=== PATIENT | female | born 1955 | race Caucasian/White ===

== ENCOUNTER 2017-04-21 09:43 | Emergency (ER) | payer BC ==
[2017-04-21] MEDS ORDERED: Aspirin 81 MG Tab.Chew PO ONE (10:05)
[2017-04-21] MEDS: Nitroglycerin 2% Oint 1 GM UD Packet TOP ONE (10:10)
[2017-04-21] MEDS: Sodium Chloride 0.9% 1,000 ML IV SCH ×2 (10:10→10:20)
--- NOTE | 2017-04-21 10:15 | EDM.PDOC ---
ED HPI GENERAL MEDICAL PROBLEM - General Stated Complaint: CHEST PAIN Time Seen by Provider: 04/21/17 09:43 Source of Information: Reports: Patient, Family History Limitations: Reports: No Limitations - History of Present Illness INITIAL COMMENTS - FREE TEXT/NARRATIVE: 61 y.o.w.f. with CAD risk factors, H/O colon CA, came to the ed due to C/P when taking a deep breath. No N/V/D or dizziness, no diaphoresis or any other acute medical issues at this time. BP was 136/67 pulse was 93 Onset: Today Onset Date: 04/03/17 Onset Time: 07:00 Duration: Intermittent Location: Reports: Chest Quality: Reports: Ache Severity: Mild Improves with: Reports: Immobilization, Rest Worsens with: Reports: Breathing, Movement Context: Reports: Other (unknown) Associated Symptoms: Reports: No Other Symptoms chest pain Pain Score (Numeric/FACES): 6 - Related Data Allergies Allergy/AdvReac Type Severity Reaction Status Date / Time erythromycin base Allergy Rash Verified 09/23/16 14:17 [Erythromycin Base] Home Meds: Home Meds Levothyroxine 150 mcg PO ACBRK 05/12/14 [History] Lisinopril [Zestril] 5 mg PO DAILY 05/12/14 [History] SitaGLIPtin [Januvia] 50 mg PO DAILY 05/12/14 [History] metFORMIN HCl [Metformin HCl ER] 1,000 mg PO BIDM 05/12/14 [History] Insuln Asp Prot/Insulin Aspart [NovoLOG Mix 70-30] 20 units SQ PCDINNER [History] Cyanocobalamin (Vitamin B-12) [B-12] 1,000 mcg PO DAILY 09/23/16 [History] Liraglutide [Victoza] 1.2 mg SUBCUT BEDTIME 09/23/16 [History] Liraglutide [Victoza] 1.8 mg SQ BEDTIME 09/23/16 [History] atorvaSTATin [Lipitor] 40 mg PO DAILY 09/23/16 [History] Magnesium Oxide [Magnesium] 500 mg PO DAILY 09/26/16 [History] Ascorbic Acid [Vitamin C] 1,000 mg PO DAILY 04/21/17 [History] Past Medical History HEENT History: Reports: Impaired Vision Cardiovascular History: Reports: High Cholesterol, Hypertension Respiratory History: Reports: None Gastrointestinal History: Reports: Colon Polyp, Other (See Below) Other Gastrointestinal History: COLON RESECTION FOR CA 2013 Genitourinary History: Reports: Diabetic Nephropathy [employer] SPECIALIST History: Reports: Musculoskeletal History: Reports: Back Pain, Chronic Neurological History: Reports: None Psychiatric History: Reports: None Endocrine/Metabolic History: Reports: Diabetes, Type I, Hypothyroidism Hematologic History: Reports: None, B12 Deficiency Oncologic (Cancer) History: Reports: Colon, Other (See Below) Other Oncologic History: LYMPH NODES Dermatologic History: Reports: None - Infectious Disease History Infectious Disease History: Reports: Chicken Pox, Measles, Mumps - Past Surgical History GI Surgical History: Reports: Colon, Colonoscopy, Hernia, Abdominal, Other (See Below) Female Surgical History: Reports: Breast Reduction, Section, Salpingo-Oophorectomy Social & Family History - Family History Family Medical History: Noncontributory - Tobacco Use Smoking Status *Q: Former Smoker Years of Tobacco use: 10 Used Tobacco, but Quit: No Month Tobacco Last Used: 04/2014 Second Hand Smoke Exposure: No - Alcohol Use Days Per Week of Alcohol Use: 0 - Recreational Drug Use Recreational Drug Use: No ED ROS GENERAL - Review of Systems Review Of Systems: See Below Constitutional: Reports: No Symptoms HEENT: Reports: No Symptoms Respiratory: Reports: No Symptoms Cardiovascular: Reports: Chest Pain Endocrine: Reports: No Symptoms GI/Abdominal: Reports: No Symptoms : Reports: No Symptoms Musculoskeletal: Reports: No Symptoms Skin: Reports: No Symptoms Neurological: Reports: No Symptoms Psychiatric: Reports: No Symptoms Hematologic/Lymphatic: Reports: No Symptoms Immunologic: Reports: No Symptoms ED EXAM, GENERAL - Physical Exam Exam: See Below Exam Limited By: No Limitations General Appearance: Alert, WD/WN, Mild Distress Eye Exam: Bilateral Eye: Normal Inspection Ears: Normal External Exam Ear Exam: Bilateral Ear: Auricle Normal Nose: Normal Inspection, Normal Mucosa Throat/Mouth: Normal Inspection, Normal Lips, Normal Voice, No Airway Compromise Head: Atraumatic, Normocephalic Neck: Normal Inspection, Supple Respiratory/Chest: No Respiratory Distress, Lungs Clear, Normal Breath Sounds Cardiovascular: Normal Peripheral Pulses, Regular Rate, Rhythm, No Edema Peripheral Pulses: 1+: Femoral (L), Femoral (R) GI/Abdominal: Normal Bowel Sounds, Soft, Non-Tender (Female) Exam: Deferred Rectal (Female) Exam: Deferred Back Exam: Normal Inspection, Full Range of Motion Extremities: Normal Inspection, Normal Range of Motion, Non-Tender Neurological: Alert, Oriented, CN II-XII Intact, Normal Cognition, Normal Gait Psychiatric: Normal Affect, Normal Mood Skin Exam: Warm, Dry, Intact, Normal Color Lymphatic: No Adenopathy EKG INTERPRETATION EKG Date: 04/21/17 Time: 09:50 Rhythm: NSR Rate (Beats/Min): 87 [place]: Normal P-Wave: Present QRS: Normal ST-T: Normal QT: Normal Comparison: NA - No Prior EKG Course - Vital Signs Text/Narrative:: 61 y.o.w.f. with CAD risk factors, H/O colon CA, came to the ed due to C/P when taking a deep breath. No N/V/D or dizziness, no diaphoresis or any other acute medical issues at this time. BP was 136/67 pulse was 93 PE: C/P tendernes Labs: D Dimer, cbc wnl, Troponin neg, Na was 133 Imaging: CXR NAD ECG: NSR Impression: Atypical chest pain Tx: Toradol (helped the most), ASA, NTG paste initially (did not help) Reexam: 100% improved Plan: D/C with instructions. Last Recorded V/S: Last Vital Signs Temp 36.2 C 04/21/17 09:45 Pulse 94 04/21/17 09:45 Resp 17 04/21/17 09:45 BP 134/63 04/21/17 09:45 Pulse Ox 94 L 04/21/17 09:45 - Orders/Labs/Meds Orders: Active Orders 24 hr Category Date Time Status Sodium Chloride 0.9% [Normal Saline] 1,000 ml Med 04/21/17 10:15 Active IV ASDIRECTED EKG 12 Lead [EK] Routine Ther 04/21/17 09:58 Ordered Medication Orders Sodium Chloride (Normal Saline) 1,000 mls @ 125 mls/hr IV ASDIRECTED RORO Last Admin: 04/21/17 10:20 Dose: 125 mls/hr Admin: 04/21/17 10:10 Dose: 125 mls/hr Labs: Laboratory Tests 04/21/17 04/21/17 04/21/17 Range/Units 10:05 10:06 10:06 WBC 6.0 (4.5-12.0) X10-3/uL RBC 4.71 (3.23-5.20) x10(6)uL Hgb 13.5 (11.5-15.5) g/dL Hct 40.3 (30.0-51.3) % MCV 85.5 (80-96) fL MCH 28.7 (27.7-33.6) pg MCHC 33.6 (32.2-35.4) g/dL RDW 13.6 (11.5-15.5) % Plt Count 213 (125-369) X10(3)uL MPV 8.2 (7.4-10.4) fL Neut % (Auto) 61.0 (46-82) % Lymph % (Auto) 26.1 (13-37) % [facility] % (Auto) 9.6 (4-12) % Eos % (Auto) 2 (1.0-5.0) % Baso % (Auto) 1 (0-2) % Neut # (Auto) 3.6 (1.6-8.3) # Lymph # (Auto) 1.6 (0.6-5.0) # [facility] # (Auto) 0.6 (0.0-1.3) # Eos # (Auto) 0.1 (0.0-0.8) # Baso # (Auto) 0.1 (0.0-0.2) # D-Dimer, Quantitative < 100 L (100-400) ng/mL Sodium 133 L (135-145) mmol/L Potassium 4.6 (3.5-5.3) mmol/L Chloride 98 L D (100-110) mmol/L Carbon Dioxide 21 L (23-29) mmol/L BUN 21 H (5-20) mg/dL Creatinine 1.0 (0.6-1.3) mg/dL Est Cr Clr Drug Dosing TNP Estimated GFR (MDRD) 57 L (>60) BUN/Creatinine Ratio 21.0 H (9-20) Glucose 321 H D (80-116) mg/dL Calcium 9.0 (8.6-10.2) mg/dL Total Bilirubin 1.6 H (0.1-1.3) mg/dL AST 24 (5-27) IU/L ALT 23 (14-26) IU/L Alkaline Phosphatase 54 L (56-112) IU/L Troponin I (0.02-0.06) NG/ML Total Protein 7.0 (6.0-8.0) g/dL Albumin 4.1 (3.5-5.2) g/dL Globulin 2.9 g/dL Albumin/Globulin Ratio 1.4 04/21/ Range/Units 10:06 WBC (4.5-12.0) X10-3/uL RBC (3.23-5.20) x10(6)uL Hgb (11.5-15.5) g/dL Hct (30.0-51.3) % MCV (80-96) fL MCH (27.7-33.6) pg MCHC (32.2-35.4) g/dL RDW (11.5-15.5) % Plt Count (125-369) X10(3)uL MPV (7.4-10.4) fL Neut % (Auto) (46-82) % Lymph % (Auto) (13-37) % [facility] % (Auto) (4-12) % Eos % (Auto) (1.0-5.0) % Baso % (Auto) (0-2) % Neut # (Auto) (1.6-8.3) # Lymph # (Auto) (0.6-5.0) # [facility] # (Auto) (0.0-1.3) # Eos # (Auto) (0.0-0.8) # Baso # (Auto) (0.0-0.2) # D-Dimer, Quantitative (100-400) ng/mL Sodium (135-145) mmol/L Potassium (3.5-5.3) mmol/L Chloride (100-110) mmol/L Carbon Dioxide (23-29) mmol/L BUN (5-20) mg/dL Creatinine (0.6-1.3) mg/dL Est Cr Clr Drug Dosing Estimated GFR (MDRD) (>60) BUN/Creatinine Ratio (9-20) Glucose (80-116) mg/dL Calcium (8.6-10.2) mg/dL Total Bilirubin (0.1-1.3) mg/dL AST (5-27) IU/L ALT (14-26) IU/L Alkaline Phosphatase (56-112) IU/L Troponin I < 0.01 L (0.02-0.06) NG/ML Total Protein (6.0-8.0) g/dL Albumin (3.5-5.2) g/dL Globulin g/dL Albumin/Globulin Ratio Meds: Medications Generic Name Dose Route Start Last Admin Trade Name Raudel PRN Reason Stop Dose Admin Sodium Chloride 1,000 mls @ 125 mls/hr 04/21/17 10:15 04/21/17 10:20 Normal Saline IV 125 mls/hr ASDIRECTED RORO Administration Discontinued Medications Generic Name Dose Route Start Last Admin Trade Name Raudel PRN Reason Stop Dose Admin Aspirin 324 mg 04/21/17 10:05 04/21/17 09:45 Aspirin PO 04/21/17 10:06 324 mg ONETIME ONE Administration Ketorolac Tromethamine 30 mg 04/21/17 11:04 04/21/17 11:13 Toradol IVPUSH 04/21/17 11:05 30 mg ONETIME ONE Administration Nitroglycerin 1 gm 04/21/17 10:05 04/21/17 10:10 Nitro-Bid 2% TOP 04/21/17 10:06 1 gm ONETIME ONE Administration Departure - Departure Time of Disposition: 11:32 Disposition: Home, Self-Care 01 Condition: Good Clinical Impression: Atypical chest pain, Hyponatremia Diabetes Qualifiers: Diabetes mellitus type: type 2 Instructions: Nonspecific Chest Pain Referrals: Nestor Fallon MD [Primary Care Provider] - Additional Instructions: Please increase water intake, motrin for pain, please f/u. come back if your symptoms get worse acutely. - My Orders Last 24 Hours: My Active Orders 04/21/17 09:58 EKG 12 Lead [EK] Routine 04/21/17 10:15 Sodium Chloride 0.9% [Normal Saline] 1,000 ml IV ASDIRECTED - Assessment/Plan Last 24 Hours: My Active Orders 04/21/17 09:58 EKG 12 Lead [EK] Routine 04/21/17 10:15 Sodium Chloride 0.9% [Normal Saline] 1,000 ml IV ASDIRECTED
[2017-04-21] MEDS ORDERED: Ketorolac 30 MG/ML SDV IVPUSH ONE (11:04)
--- NOTE | 2017-04-21 11:55 | CR ---
INDICATION: Chest pain. CHEST: An AP upright view of the chest was obtained 04/21/2017 and compared with 06/10/2014, again revealing evidence of exogenous obesity. The heart did not appear enlarged. Some minimal calcification is suggested in the arch of the aorta. Overlying EKG leads are noted. An active infiltrate or effusion was not identified. IMPRESSION: No acute process - findings as noted above. MTDD
[2017-04-21 16:23] VITALS: BP 120/69
== END 2017-04-21 11:45 | disposition home or self-care (01) ==
LOC: FB.ED 09:43
DX: R07.89 Other chest pain (principal); E87.1 Hypo-osmolality and hyponatremia; E78.00 Pure hypercholesterolemia, unspecified; E11.21 Type 2 diabetes mellitus with diabetic nephropathy; I10 Essential (primary) hypertension; E03.9 Hypothyroidism, unspecified; Z87.891 Personal history of nicotine dependence; Z79.84 Long term (current) use of oral hypoglycemic drugs; Z79.899 Other long term (current) drug therapy; Z88.1 Allergy status to other antibiotic agents; Z79.4 Long term (current) use of insulin
CPT/HCPCS: 36415; 71010; 80053; 84484; 85025; 85379; 93005; 96361; 96374; 99285; A9270; J1885; J7040

== ENCOUNTER 2018-09-09 09:48 | Emergency (ER) | payer BC ==
[2018-09-09] MEDS ORDERED: Aspirin 81 MG Tab.Chew PO ONE (09:59)
[2018-09-09 10:14] VITALS: BP 153/81
--- NOTE | 2018-09-09 10:14 | EDM.PDOC ---
ED HPI GENERAL MEDICAL PROBLEM - General Chief Complaint: Chest Pain Stated Complaint: CHEST FEELS DIFFERENT Time Seen by Provider: 09/09/18 09:48 Source of Information: Reports: Patient (by PC) History Limitations: Reports: No Limitations - History of Present Illness INITIAL COMMENTS - FREE TEXT/NARRATIVE: 63 y.o.w.f with H/O IDDM, came to the ed due to chest pain with chest movement. Pain moves from her right shoulder to left shoulder to ant chest, then back etc. No pain at rest. No N/V/D no Dizziness, no diaphoresis, no other acute medical issues BP 153/81 RR 16 Pulse ox 97% on RA Temp 36.1 Pulse 81 Onset Date: 09/09/18 Onset Time: 06:00 Duration: Hour(s):, Intermittent (with movement) Location: Reports: Chest Quality: Reports: Ache Severity: Moderate Improves with: Reports: Rest Worsens with: Reports: Movement Context: Reports: Other Associated Symptoms: Reports: No Other Symptoms left chest Pain Score (Numeric/FACES): 8 - Related Data Allergies Allergy/AdvReac Type Severity Reaction Status Date / Time erythromycin base Allergy Rash Verified 09/09/18 09:59 [Erythromycin Base] Home Meds: Home Meds Levothyroxine 150 mcg PO ACBRK 05/12/14 [History] Lisinopril [Zestril] 5 mg PO DAILY 05/12/14 [History] SitaGLIPtin [Januvia] 50 mg PO DAILY 05/12/14 [History] metFORMIN HCl [Metformin ER Osmotic] 1,000 mg PO BIDM 05/12/14 [History] Insuln Asp Prot/Insulin Aspart [NovoLOG Mix 70-30] 20 units SQ TID 06/09/14 [ History] Cyanocobalamin (Vitamin B-12) [B-12] 1,000 mcg PO DAILY 09/23/16 [History] atorvaSTATin [Lipitor] 40 mg PO DAILY 09/23/16 [History] Magnesium Oxide [Magnesium] 500 mg PO DAILY 09/26/16 [History] Ascorbic Acid [Vitamin C] 1,000 mg PO DAILY 04/21/17 [History] Dulaglutide [Trulicity] 1.5 mg SQ WEEKLY 09/09/18 [History] Insulin Degludec [Tresiba Flextouch U-200] 50 units SQ DAILY 09/09/18 [History] Past Medical History HEENT History: Reports: Impaired Vision Cardiovascular History: Reports: High Cholesterol, Hypertension Respiratory History: Reports: None Gastrointestinal History: Reports: Colon Polyp, Other (See Below) Other Gastrointestinal History: COLON RESECTION FOR CA 2013 Genitourinary History: Reports: Diabetic Nephropathy [employer]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: Musculoskeletal History: Reports: Back Pain, Chronic Neurological History: Reports: None Psychiatric History: Reports: None Endocrine/Metabolic History: Reports: Diabetes, Type I, Hypothyroidism Hematologic History: Reports: None, B12 Deficiency Oncologic (Cancer) History: Reports: Colon, Other (See Below) Other Oncologic History: LYMPH NODES Dermatologic History: Reports: None - Infectious Disease History Infectious Disease History: Reports: Chicken Pox, Measles, Mumps - Past Surgical History GI Surgical History: Reports: Colon, Colonoscopy, Hernia, Abdominal, Other (See Below) Female Surgical History: Reports: Breast Reduction, Section, Salpingo-Oophorectomy Social & Family History - Family History Family Medical History: Noncontributory ED ROS GENERAL - Review of Systems Review Of Systems: See Below Constitutional: Reports: No Symptoms HEENT: Reports: No Symptoms Respiratory: Reports: No Symptoms Cardiovascular: Reports: Chest Pain (with chest movement) Endocrine: Reports: No Symptoms GI/Abdominal: Reports: No Symptoms : Reports: No Symptoms Musculoskeletal: Reports: Muscle Pain Skin: Reports: No Symptoms Neurological: Reports: No Symptoms Psychiatric: Reports: No Symptoms Hematologic/Lymphatic: Reports: No Symptoms Immunologic: Reports: No Symptoms ED EXAM, GENERAL - Physical Exam Exam: See Below Exam Limited By: No Limitations General Appearance: Alert, WD/WN, Mild Distress Eye Exam: Bilateral Eye: Normal Inspection Ears: Normal External Exam, Normal Canal Ear Exam: Bilateral Ear: Auricle Normal Nose: Normal Inspection, Normal Mucosa, No Blood Throat/Mouth: Normal Inspection, Normal Lips, Normal Voice, No Airway Compromise Head: Atraumatic, Normocephalic Neck: Normal Inspection, Supple, Non-Tender, Full Range of Motion Respiratory/Chest: No Respiratory Distress, Lungs Clear, Normal Breath Sounds, Chest Non-Tender Cardiovascular: Normal Peripheral Pulses, Regular Rate, Rhythm, No Edema, No Gallop, No Murmur, No Rub Peripheral Pulses: 1+: Brachial (R) GI/Abdominal: Normal Bowel Sounds, Soft, Non-Tender, No Organomegaly, No Abnormal Bruit, No Mass, Pelvis Stable (Female) Exam: Deferred Rectal (Female) Exam: Deferred Back Exam: Normal Inspection, Full Range of Motion Extremities: Normal Inspection, Normal Range of Motion, Non-Tender, No Pedal Edema, Normal Capillary Refill Neurological: Alert, Oriented, CN II-XII Intact, Normal Cognition, Normal Gait, No Motor/Sensory Deficits Psychiatric: Normal Affect, Normal Mood Skin Exam: Warm, Dry, Intact, Normal Color, No Rash Lymphatic: No Adenopathy EKG INTERPRETATION EKG Date: 09/09/18 Time: 09:55 Rhythm: NSR Rate (Beats/Min): 81 [place]: Normal P-Wave: Present QRS: Normal ST-T: Normal QT: Normal Comparison: NA - No Prior EKG Course - Vital Signs Text/Narrative:: 63 y.o.w.f with H/O IDDM, came to the ed due to chest pain with chest movement. Pain moves from her right shoulder to left shoulder to ant chest, then back etc. No pain at rest. No N/V/D no Dizziness, no diaphoresis, no other acute medical issues BP 153/81 RR 16 Pulse ox 97% on RA Temp 36.1 Pulse 81 PE: WNWD W H with IDDM with chest wall pain with inspiration/expiration etc Imaging: CXR: NAD Labs: CBC, BMP nl except BUN is 20 Troponin is 0.017 Impression: Atypical chest pain Tx: ASA Reexam: Pt was doing fine here in the ed, was painfree the entire time as long she does not move her chest Plan: D/C with instructions Last Recorded V/S: Last Vital Signs Temp 36.7 C 09/09/18 09:50 Pulse 84 09/09/18 09:50 Resp 16 09/09/18 09:50 BP 153/81 H 09/09/18 09:50 Pulse Ox 97 09/09/18 09:50 - Orders/Labs/Meds Orders: Active Orders 24 hr Category Date Time Status Chest 2V [CR] Stat Exams 09/09/18 10:13 Taken EKG 12 Lead [EK] Routine Ther 09/09/18 10:01 Ordered Labs: Laboratory Tests 09/09/18 09/09/18 09/09/18 Range/Units 10:10 10:10 10:10 WBC 5.5 (4.5-12.0) X10-3/uL RBC 4.42 (3.23-5.20) x10(6)uL Hgb 13.0 (11.5-15.5) g/dL Hct 38.6 (30.0-51.3) % MCV 87.4 (80-96) fL MCH 29.4 (27.7-33.6) pg MCHC 33.7 (32.2-35.4) g/dL RDW 12.6 (11.5-15.5) % Plt Count 238 (125-369) X10(3)uL MPV 7.9 (7.4-10.4) fL Neut % (Auto) 50.1 (46-82) % Lymph % (Auto) 34.1 (13-37) % [place] % (Auto) 10.0 (4-12) % Eos % (Auto) 5 (1.0-5.0) % Baso % (Auto) 1 (0-2) % Neut # (Auto) 2.7 (1.6-8.3) # Lymph # (Auto) 1.9 (0.6-5.0) # [place] # (Auto) 0.6 (0.0-1.3) # Eos # (Auto) 0.3 (0.0-0.8) # Baso # (Auto) 0.0 (0.0-0.2) # PT 9.1 (8.7-11.1) INR 0.94 (0.89-1.13) D-Dimer, Quantitative (0.0-0.59) mg/LFEU Sodium 140 (135-145) mmol/L Potassium 4.3 (3.5-5.3) mmol/L Chloride 105 (100-110) mmol/L Carbon Dioxide 26 (21-32) mmol/L BUN 20 H (7-18) mg/dL Creatinine 0.8 (0.55-1.02) mg/dL Est Cr Clr Drug Dosing TNP Estimated GFR (MDRD) > 60 (>60) BUN/Creatinine Ratio 25.0 H (9-20) Glucose 171 H (80-116) mg/dL Calcium 8.6 (8.6-10.2) mg/dL Total Bilirubin 1.1 (0.1-1.3) mg/dL AST 20 D (5-25) IU/L ALT 27 (12-36) U/L Alkaline Phosphatase 58 (56-112) IU/L Troponin I (<0.017-0.056) ng/mL Total Protein 6.6 (6.0-8.0) g/dL Albumin 3.3 (3.2-4.6) g/dL Globulin 3.3 g/dL Albumin/Globulin Ratio 1.0 09/09/18 09/09/18 Range/Units 10:10 10:10 WBC (4.5-12.0) X10-3/uL RBC (3.23-5.20) x10(6)uL Hgb (11.5-15.5) g/dL Hct (30.0-51.3) % MCV (80-96) fL MCH (27.7-33.6) pg MCHC (32.2-35.4) g/dL RDW (11.5-15.5) % Plt Count (125-369) X10(3)uL MPV (7.4-10.4) fL Neut % (Auto) (46-82) % Lymph % (Auto) (13-37) % [place] % (Auto) (4-12) % Eos % (Auto) (1.0-5.0) % Baso % (Auto) (0-2) % Neut # (Auto) (1.6-8.3) # Lymph # (Auto) (0.6-5.0) # [place] # (Auto) (0.0-1.3) # Eos # (Auto) (0.0-0.8) # Baso # (Auto) (0.0-0.2) # PT (8.7-11.1) INR (0.89-1.13) D-Dimer, Quantitative 0.39 (0.0-0.59) mg/LFEU Sodium (135-145) mmol/L Potassium (3.5-5.3) mmol/L Chloride (100-110) mmol/L Carbon Dioxide (21-32) mmol/L BUN (7-18) mg/dL Creatinine (0.55-1.02) mg/dL Est Cr Clr Drug Dosing Estimated GFR (MDRD) (>60) BUN/Creatinine Ratio (9-20) Glucose (80-116) mg/dL Calcium (8.6-10.2) mg/dL Total Bilirubin (0.1-1.3) mg/dL AST (5-25) IU/L ALT (12-36) U/L Alkaline Phosphatase (56-112) IU/L Troponin I < 0.017 L (<0.017-0.056) ng/mL Total Protein (6.0-8.0) g/dL Albumin (3.2-4.6) g/dL Globulin g/dL Albumin/Globulin Ratio Meds: Medications Discontinued Medications Generic Name Dose Route Start Last Admin Trade Name Freq PRN Reason Stop Dose Admin Aspirin 324 mg 09/09/18 09:59 09/09/18 10:17 Aspirin PO 09/09/18 10:00 324 mg ONETIME ONE Administration Departure - Departure Time of Disposition: 10:59 Disposition: Home, Self-Care 01 Condition: Good Clinical Impression: Atypical chest pain Instructions: Chest Wall Pain Referrals: Nestor Fallon MD [Primary Care Provider] - Forms: ED Department Discharge Additional Instructions: please cont your current meds, Motrin for pain, please f/u with your PMD, come back if your symptoms get worse acutely - My Orders Last 24 Hours: My Active Orders 09/09/18 10:01 EKG 12 Lead [EK] Routine 09/09/18 10:13 Chest 2V [CR] Stat - Assessment/Plan Last 24 Hours: My Active Orders 09/09/18 10:01 EKG 12 Lead [EK] Routine 09/09/18 10:13 Chest 2V [CR] Stat
--- NOTE | 2018-09-10 12:44 | CR ---
INDICATION: Chest pain. CHEST ONE VIEW: An AP portable upright view of the chest was obtained 09/09/18 and compared with 04/21/17 and 06/10/14 revealing evidence of exogenous obesity. The heart and mediastinum are unremarkable. Overlying EKG leads are noted. An active infiltrate or effusion was not identified. IMPRESSION: 1. No acute progress. 2. Exogenous obesity. MTDD
== END 2018-09-09 11:22 | disposition home or self-care (01) ==
LOC: FB.ED 09:48
DX: R07.89 Other chest pain (principal); I10 Essential (primary) hypertension; E10.9 Type 1 diabetes mellitus without complications; Z88.1 Allergy status to other antibiotic agents; Z79.899 Other long term (current) drug therapy
CPT/HCPCS: 36415; 71045; 80053; 84484; 85025; 85379; 85610; 93005; 99285; A9270